=== PATIENT | male | born 1985 | race African-American/Black ===

== ENCOUNTER 2021-09-02 04:41 | Emergency (ER) | payer MEDICAID, OTHER ==
[~2021-09-02] VITALS: Ht 170.2 cm; Wt 56.7 kg
[2021-09-02] MEDS ORDERED: HYDROcodone-ACET 5/325MG TAB PO ONE (06:45)
[2021-09-02] MEDS ORDERED: BACITRACIN TOP OINT 1 UD PKG TOP ONE (06:45)
[2021-09-02 07:49] LABS: Basophils # (auto) 0 10 ^3/uL (0-0.2); Basophils % (auto) 0.7 % (0.0-2.0); Eosinophils # (auto) 0 10 ^3/uL (0-0.8); Eosinophils % (auto) 0.5 % (0.0-7.0); Hematocrit 41.9 % (41.0-53.0); Lymphocytes # (auto) 0.9 10 ^3/uL (0.4-5.4); Lymphocytes % (auto) 13.5 % (10.0-50.0); Mean Corpuscular Hemoglobin 29.3 pg (28.0-32.0); Mean Corpuscular Hgb Conc. 33.3 g/dL (32.0-36.0); Monocytes # (auto) 0.5 10 ^3/uL (0-1.3); Monocytes % (auto) 8.1 % (0.0-12.0); Neutrophils # (auto) 4.9 10 ^3/uL (1.6-8.6); Neutrophils % (auto) 77.2 % (37.0-80.0); Nucleated Red Blood Cells % 0.1 %; Red Blood Cells 4.76 10^6/uL (4.5-5.90); Red Cell Distribution Width 14.6 % (11.8-14.3); White Blood Cell 6.4 10^3/uL (4.4-10.8)
[2021-09-02 07:58] LABS: BUN/Creatinine Ratio 12.7; Calcium 8.4 mg/dL (8.5-10.1); Potassium 5.3 mmol/L (3.5-5.1)
[2021-09-02] MEDS ORDERED: IBUP600T28 PO (08:40)
[2021-09-02 09:00] VITALS: BP 125/85
== END 2021-09-02 09:09 | disposition home or self-care (01) ==
LOC: EDBD 04:41 → ER 04:41
DX: T14.8XXA Other injury of unspecified body region, initial encounter (principal); V43.52XA Car driver injured in collision with other type car in traffic accident, initial encounter; Y93.89 Activity, other specified; Y92.89 Other specified places as the place of occurrence of the external cause; Y99.8 Other external cause status
CPT/HCPCS: 36415; 70450; 72125; 73564; 73590; 80048; 80320; 85025